=== PATIENT | male | born 1975 | race Caucasian/White ===

== ENCOUNTER → 2020-11-14 | Outpatient (CLI) | payer BC ==
[~2020-11-14] MED LIST: IBUPROFEN600 MG PO; ZOFRAN ODT4 MG PO
== END ==
LOC: CT 10:33
DX: K83.8 Other specified diseases of biliary tract (principal)
CPT/HCPCS: 74170; Q9967

== ENCOUNTER 2020-12-07 11:45 | Emergency (ER) | payer BC | END 2020-12-07 17:48 | disposition home or self-care (01) | LOC: ER1 11:45 | DX: Z53.21 Procedure and treatment not carried out due to patient leaving prior to being seen by health care provider (principal) ==

== ENCOUNTER 2022-05-20 09:59 | Emergency (ER) | payer BC ==
[2022-05-20 11:35] LABS: HEMOGLOBIN 17.2 gm/dl (14.0-17.5); RED BLOOD COUNT 4.91 M/UL (4.20-5.50); WHITE BLOOD COUNT 12.3 K/UL (4.5-11.0)
[2022-05-20 11:42] LABS: BUN/CREATININE RATIO 14 (0-10)
[2022-05-20] MEDS ORDERED: HYDROCODON-ACE1 EAC4 PO (14:03)
== END 2022-05-20 14:30 | disposition home or self-care (01) ==
LOC: ER1 09:59
PROVIDERS: Student in an Organized Health Care Education/Training Program
DX: K85.90 Acute pancreatitis without necrosis or infection, unspecified (principal); F17.210 Nicotine dependence, cigarettes, uncomplicated
CPT/HCPCS: 80053; 81001; 82150; 82550; 82553; 83690; 84484; 85025; 99284; Q9967